=== PATIENT | female | born 1985 | race American Indian/Alaskan Native ===

== ENCOUNTER 2021-11-25 21:54 | Emergency (ER) | payer SELFPAY ==
--- NOTE | 2021-11-25 22:42 | XRay Report ---
LEFT WRIST 3 VIEWS INDICATION / CLINICAL INFORMATION: Left wrist pain COMPARISON: None available. FINDINGS: This study is limited by the presence of splinting material. BONES and JOINT(S): There is an acute transverse fracture through the distal radial metaphysis. An ac [place] ulnar styloid avulsion fracture is also noted. No dislocation. No significant arthritis. SOFT TISSUES: Generalized edema is seen along the wrist. ADDITIONAL FINDINGS: None. IMPRESSION: Acute left wrist fractures as above. Signer Name: Manohar Eastman MD Signed: 11/25/2021 10:38 PM Workstation Name: [id number]
[2021-11-25] MEDS ORDERED: oxyCODONE /ACETAMINOPHEN 5-325MG TAB PO ONE (23:05)
[2021-11-25] MEDS ORDERED: ONDANSETRON 4 MG ODT TAB PO ONE (23:05)
[2021-11-25] MEDS ORDERED: IBUPROFEN 600 MG TAB PO ONE (23:05)
[2021-11-25] MEDS ORDERED: MORPHINE 4 MG/1 ML INJ ONE (23:45)
[2021-11-26] MEDS ORDERED: MORPHINE 4 MG/1 ML INJ IM ONE (00:24)
--- NOTE | 2021-11-26 00:29 | Emergency Department Report ---
ED Upper Extremity Inj HPI - General Chief Complaint: Extremity Injury, Upper Stated Complaint: LEFT WRIST PAIN Source: patient Mode of arrival: Ambulatory Limitations: No Limitations - Related Data Previous Rx's Medication Instructions Recorded Last Taken Type Cyclobenzaprine [Flexeril] 10 mg PO TID PRN #21 tab 11/26/21 Unknown Rx HYDROcodone/APAP 7.5-325 [[place] 1 each PO Q6HR PRN #12 tablet 11/26/21 Unknown Rx 7.5/325] Ibuprofen [Motrin] 800 mg PO Q8HR PRN #30 tablet 11/26/21 Unknown Rx Allergies Allergy/AdvReac Type Severity Reaction Status Date / Time No Known Allergies Allergy Verified 11/25/21 23:49 ED Review of Systems ROS: Stated complaint: LEFT WRIST PAIN Other details as noted in HPI ED Past Medical Hx - Past Medical History Previous Medical History?: No - Surgical History Past Surgical History?: No - Medications Home Medications: Home Medications Medication Instructions Recorded Confirmed Last Taken Type Cyclobenzaprine [Flexeril] 10 mg PO TID PRN #21 tab 11/26/21 Unknown Rx HYDROcodone/APAP 7.5-325 [[place] 1 each PO Q6HR PRN #12 tablet 11/26/21 Unknown Rx 7.5/325] Ibuprofen [Motrin] 800 mg PO Q8HR PRN #30 tablet 11/26/21 Unknown Rx ED Physical Exam - General Limitations: No Limitations ED Course Vital Signs 11/25/21 22:04 Temperature 98.2 F Pulse Rate 79 Respiratory 16 Rate Blood Pressure 137/95 O2 Sat by Pulse 98 Oximetry ED Medical Decision Making - Radiology Data Radiology results: report reviewed, image reviewed [facility] [address] [place] [address] XRay Report Signed Patient: PEACE BARAJAS MR#: [id number] : 1985 Acct:[id number] Age/Sex: 36 / F ADM Date: 11/25/21 Loc: ED Attending Dr: Ordering Physician: CASANDRA GUEVARA MD Date of Service: 11/25/21 Procedure(s): XR wrist 3+V LT Accession Number(s): [id number] cc: CASANDRA GUEVARA MD Fluoro Time In Minutes: LEFT WRIST 3 VIEWS INDICATION / CLINICAL INFORMATION: Left wrist pain COMPARISON: None available. FINDINGS: This study is limited by the presence of splinting material. BONES and JOINT(S): There is an acute transverse fracture through the distal radial metaphysis. An acute ulnar styloid avulsion fracture is also noted. No dislocation. No significant arthritis. SOFT TISSUES: Generalized edema is seen along the wrist. ADDITIONAL FINDINGS: None. IMPRESSION: Acute left wrist fractures as above. Signer Name: Manohar Eastman MD Signed: 11/25/2021 10:38 PM Workstation Name: [id number] Transcribed By: MN Dictated By: Manohar Eastman MD Electronically Authenticated By: Manohar Eastman MD Signed Date/Time: 11/25/212237 DD/ 36 TD/TT: - Differential Diagnosis Colles' fracture; hand contusion; wrist sprain; forearm fracture Critical care attestation.: If time is entered above; I have spent that time in minutes in the direct care of this critically ill patient, excluding procedure time. ED Disposition Clinical Impression: Closed Colles' fracture of left radius Qualifiers: Encounter type: subsequent encounter Fracture healing: with delayed healing Qualified Code(s): S52.532G - Colles' fracture of left radius, subsequent encounter for closed fracture with delayed healing Left wrist fracture Qualifiers: Encounter type: subsequent encounter Fracture type: closed Fracture healing: with delayed healing Qualified Code(s): S62.102G - Fracture of unspecified carpal bone, left wrist, subsequent encounter for fracture with delayed healing Disposition: 01 HOME / SELF CARE / HOMELESS Is pt being admited?: No Does the pt Need Aspirin: No Condition: Stable Instructions: Cast or Splint Care, Adult, [id number], Wrist Splint, Adult, [id number], Radial Head Fracture, [id number], Colles Fracture Additional Instructions: The left wrist x-ray still shows closed Colles' fracture. Therefore take pain medication as advised, drink plenty of fluids, follow-up with the orthopedic surgeon that you are originally referred to or alternatively you can follow-up with Dr. Devries, our orthopedic surgeon on-call for further evaluation. Contact his office first thing in the morning on Friday, November 26, 2021 to schedule a follow-up appointment. Return to the ED immediately if symptoms get worse. Prescriptions: Cyclobenzaprine [Flexeril] 10 mg PO TID PRN #21 tab PRN Reason: Muscle Spasm Ibuprofen [Motrin] 800 mg PO Q8HR PRN #30 tablet PRN Reason: Pain , Severe (7-10) HYDROcodone/APAP 7.5-325 [[place] 7.5/325] 1 each PO Q6HR PRN #12 tablet PRN Reason: Pain Referrals: KATYA JOHN MD [Primary Care Provider] - 3-5 Days ILYA DEVRIES MD [Staff Physician] - 3-5 Days Time of Disposition: 00:28 Print Language: CZECH
[2021-11-26 00:47] VITALS: BP 118/64
== END 2021-11-26 00:47 | disposition home or self-care (01) ==
LOC: ED 21:54
DX: S52.532A Colles' fracture of left radius, initial encounter for closed fracture (principal); S62.102A Fracture of unspecified carpal bone, left wrist, initial encounter for closed fracture; Z79.899 Other long term (current) drug therapy; X58.XXXA Exposure to other specified factors, initial encounter; Y93.89 Activity, other specified; Y92.89 Other specified places as the place of occurrence of the external cause; Y99.8 Other external cause status
CPT/HCPCS: 73110; 96372; 99283; J2270; J3490; Q0162